=== PATIENT | male | born 1945 | race Caucasian/White ===

== ENCOUNTER 2024-02-07 09:23 | Emergency (ER) | payer OTHER, MEDICAID ==
[~2024-02-07] VITALS: Ht 172.7 cm; Wt 81.6 kg
[2024-02-07] MEDS ORDERED: LIDOCAINE 2% JEL UROJET 10 ML MM ONE (10:05)
[2024-02-07 10:48] LABS: APPEARANCE,URINE TURBID (CLEAR); BILIRUBIN,URINE 1+ (NEGATIVE); BLOOD, URINE 3+ Ery/uL (NEGATIVE); COLOR,URINE RED (YELLOW); KETONES,URINE 1+ mg/dL (NEGATIVE); LEUKOCYTE ESTERASE ,URINE 2+ (NEGATIVE); NITRITE, URINE POSITIVE (NEGATIVE); PH,URINE 6.5 (5.0-8.0); PROTEIN,URINE 3+ mg/dl (NEGATIVE); UGLUCOSE TRACE mg/dL (NEGATIVE)
[2024-02-07 10:52] LABS: ADD URINE CULTURE YES; BACTERIA,URINE Few /HPF (None Seen); RBC,URINE TOO NUMEROUS TO COUN /HPF (0-2); SQUAMOUS EPITHELIAL CELL,UR Rare /HPF (None Seen); WBC,URINE 21-50 /HPF (0-3)
[2024-02-07] MEDS ORDERED: CEPHALEXIN MONOHYDRATE 500 MG CAPSULE PO ONE (11:38)
[2024-02-07] MEDS: CEPHALEXIN MONOHYDRATE 500 MG CAPSULE PO ONE (11:41)
[2024-02-07] MEDS ORDERED: CEPH500C2 PO (11:43)
[2024-02-07] MEDS ORDERED: PHEN-895 PO (11:43)
[2024-02-07 11:55] VITALS: BP 136/71; TEMP 98.3; O2SAT 97
== END 2024-02-07 12:03 | disposition home or self-care (01) ==
LOC: ER 09:53
DX: R33.9 Retention of urine, unspecified (principal); N39.0 Urinary tract infection, site not specified; I10 Essential (primary) hypertension; J44.9 Chronic obstructive pulmonary disease, unspecified; Z85.51 Personal history of malignant neoplasm of bladder; Z87.440 Personal history of urinary (tract) infections
CPT/HCPCS: 99284; 87086; 81001; J3490